=== PATIENT | male | born 2000 | race Hispanic/Latino ===

== ENCOUNTER 2022-06-01 18:26 | Emergency (ER) | payer SELFPAY ==
[2022-06-01] MEDS ORDERED: KETOROLAC 30 MG/ML INJ ONE (19:30)
[2022-06-01 19:43] LABS: Absolute Lymphocytes (CBC) 2.2 K/uL (0.7-4.9); Hematocrit 46.9 % (39.6-49.0); Lymphocytes % 27.4 % (15.3-44.8); MCV 84.7 fL (80-100); MPV 7.5 fL (7.6-11.3); RBC Red Blood Cell Count 5.54 M/uL (4.33-5.43)
[2022-06-01 19:49] LABS: Protime INR 0.97
[2022-06-01 20:02] LABS: ALT/SGPT 19 U/L (12-78); AST/SGOT 12 U/L (15-37); Albumin 4.6 g/dL (3.4-5.0); Alkaline Phosphatase 79 U/L (45-117); BUN Blood Urea Nitrogen 13 mg/dL (7-18); Bicarbonate 26 mmol/L (21-32); Bilirubin Direct 0.3 mg/dL (0-0.2); Bilirubin Total 1.4 mg/dL (0.2-1.0); Glomerular Filtration Rate 112 ml/min (=/>90); Glucose Level 97 mg/dL (74-106); Magnesium 2.1 mg/dL (1.8-2.4); NT PRO-BNP 8 pg/mL (<125); Potassium 3.7 mmol/L (3.5-5.1); Protein, Total 7.7 g/dL (6.4-8.2); Sodium Level 139 mmol/L (136-145)
[2022-06-01 20:05] LABS: Troponin High Sensitivity < 3.0 pg/mL (<58.9)
--- NOTE | 2022-06-01 20:17 | RAD REPORT ---
EXAM DESCRIPTION: RAD - Chest Single View - 06/01/2022 7:57 pm CLINICAL HISTORY: CHEST PAIN COMPARISON: No comparisons FINDINGS: Lines: None. Lungs: Nonspecific prominence of the basilar pulmonary interstitial markings. No consolidation or keyla ma. Pleural: No significant pleural effusions or pneumothorax. Cardiac: The heart size is within normal limits. Bones: No acute fractures. Other: IMPRESSION: No definite acute process. Some nonspecific prominence of the interstitial markings at t he lung bases. No evidence of a consolidative pneumonia or edema.
--- NOTE | 2022-06-01 20:30 | EDPHYS ---
Physician Documentation [facility] Name: Killian Gary Age: 21 yrs Sex: Male : 2000 Arrival Date: 06/01/2022 Time: 18:32 Bed 6 Private MD: ED Physician Keya Childers HPI: 06/01 19:17 This 21 yrs old Male presents to ER via Ambulatory with complaints of Chest jmm Pain, Dizziness. 19:17 The patient or guardian reports chest pain that is located primarily in the anterior [facility] chest wall, left. Associated signs and symptoms: Pertinent positives: lightheadedness, Pertinent negatives: shortness of breath. The chest pain is described as aching, sharp. Duration: The patient or guardian reports a single episode, that is still ongoing. Modifying factors: The symptoms are alleviated by Movement. the symptoms are aggravated by Resting. The patient has experienced a previous episode. Historical: - Allergies: 19:17 No Known Allergies; as6 - Home Meds: 19:17 None [Active]; as6 - PMHx: 19:17 None; as6 - PSHx: 19:17 None; as6 - Immunization history:: Client reports having NOT received the Covid vaccine. - Social history:: Smoking status: Patient denies any tobacco usage or history of. ROS: 19:17 Constitutional: Negative for fever, chills, and weight loss. jmm 19:17 Respiratory: Negative for shortness of breath, cough, wheezing, and pleuritic chest pain, Abdomen/GI: Negative for abdominal pain, nausea, vomiting, diarrhea, and constipation. 19:17 Cardiovascular: Positive for chest pain. 19:17 All other systems are negative. Exam: 19:17 Constitutional: This is a well developed, well nourished patient who is awake, alert, jmm and in no acute distress. Head/Face: atraumatic. Eyes: EOMI, no conjunctival erythema appreciated ENT: Moist Mucus Membranes Neck: Trachea midline, Supple Chest/axilla: Normal chest wall appearance and motion. 19:17 Respiratory: Normal respirations, no respiratory distress appreciated Abdomen/GI: Non distended Back: Normal ROM Skin: General appearance color normal MS/ Extremity: Moves all extremities, no obvious deformities appreciated, no edema noted to the lower extremities Neuro: Awake and alert Psych: Behavior is normal, Mood is normal, Patient is cooperative and pleasant 19:17 Chest/axilla: Palpation: tenderness, that is mild, of the anterior aspect of left upper chest. 19:17 Cardiovascular: Rate: normal, Rhythm: regular. 19:17 Respiratory: the patient does not display signs of respiratory distress, Respirations: normal, Breath sounds: are clear throughout. 06/02 00:10 ECG was reviewed by the Attending Physician. [facility] Vital Signs: 06/01 19:16 BP 147 / 93; Pulse 86; Resp 19 S; Temp 98.4(O); Pulse Ox 100% on R/A; Weight 86.18 kg as6 (R); Height 5 ft. 11 in. (180.34 cm) (R); Pain 5/10; 20:21 BP 142 / 84; Pulse 77; Resp 18 S; Pulse Ox 100% on R/A; as6 20:43 BP 137 / 87; Pulse 79; Resp 18; Pulse Ox 100% ; Pain 0/10; kl 19:16 Body Mass Index 26.50 (86.18 kg, 180.34 cm) as6 MDM: 19:17 Patient medically screened. [facility] 20:30 Data reviewed: vital signs, nurses notes. Counseling: I had a detailed discussion with [facility] the patient and/or guardian regarding: the historical points, exam findings, and any diagnostic results supporting the discharge/admit diagnosis, the need for outpatient follow up, to return to the emergency department if symptoms worsen or persist or if there are any questions or concerns that arise at home. 20:30 ED course: Physical exam consistent with chest wall pain. Pain is reproducible. Labs [facility] are unremarkable. EKG did not reveal signs of pericarditis or ST changes. Patient advised follow-up PCP and otherwise given strict return precautions. Patient understood and agrees to plan of care.. 06/01 19:17 Order name: Basic Metabolic Panel; Complete Time: 20:20 [facility] 06/01 19:17 Order name: CBC with Diff; Complete Time: 19:46 [facility] 06/01 19:17 Order name: LFT's; Complete Time: 20:20 [facility] 06/01 19:17 Order name: Magnesium; Complete Time: 20:20 [facility] 06/01 19:17 Order name: NT PRO-BNP; Complete Time: 20:20 [facility] 06/01 19:17 Order name: PT-INR; Complete Time: 20:20 [facility] 06/01 19:17 Order name: Troponin HS; Complete Time: 20:20 [facility] 06/01 19:17 Order name: XRAY Chest (1 view); Complete Time: 20:20 [facility] 06/01 19:17 Order name: EKG; Complete Time: 19:19 [facility] 06/01 19:17 Order name: Cardiac monitoring; Complete Time: 19:19 [facility] 06/01 19:17 Order name: EKG - Nurse/Tech; Complete Time: 19:46 [facility] 06/01 19:17 Order name: IV Saline Lock; Complete Time: 19:46 [facility] 06/01 19:18 Order name: D-Dimer; Complete Time: 20:20 [facility] 06/01 19:17 Order name: Labs collected and sent; Complete Time: 19:46 [facility] 06/01 19:17 Order name: O2 Per Protocol; Complete Time: 19:19 [facility] 06/01 19:17 Order name: O2 Sat Monitoring; Complete Time: 19:19 [facility] EC/25 00:10 Rate is 79 beats/min. Rhythm is regular. QRS [place] is Normal. SC interval is normal. QRS jmm interval is normal. QT interval is normal. No Q waves. T waves are Normal. No ST changes noted. Reviewed by me. Administered Medications: 06/01 19:31 Drug: Ketorolac 30 mg Route: IVP; Site: right antecubital; aa9 19:47 Follow up: Response: No adverse reaction aa9 20:43 Follow up: Response: No adverse reaction; Marked relief of symptoms kl Disposition Summary: 06/01/22 20:30 Discharge Ordered Location: Home [facility] Condition: Stable [facility] Diagnosis - Chest pain, unspecified [facility] Followup: [facility] - With: Private Physician - When: 2 - 3 days - Reason: Recheck today's complaints, Continuance of care, Re-evaluation by your physician Discharge Instructions: - Discharge Summary Sheet [facility] - Nonspecific Chest Pain, Adult [facility] Forms: - Medication Reconciliation Form [facility] - Thank You Letter [facility] - Antibiotic Education [facility] - Prescription Opioid Use [facility] Prescriptions: - Diclofenac Sodium 75 mg Oral Tablet Sustained Release - take 1 tablet by ORAL route 2 times per day; 30 tablet; Refills: 0, Product [facility] Selection Permitted Signatures: Dispatcher [employer] Gustavo Duarte PA PA jmm Slawson, Ashby, RN RN as6 Rubi Patel RN RN aa9 Shara Lamas RN kl
--- NOTE | 2022-06-01 20:30 | ER ---
Nurse's Notes [facility] Name: Killian Gary Age: 21 yrs Sex: Male : 2000 Arrival Date: 06/01/2022 Time: 18:32 Bed 6 Private MD: Diagnosis: Chest pain, unspecified Presentation: 06/01 19:16 Chief complaint: Patient states: "I've had this chest pain for about a month". as6 Coronavirus screen: At this time, the client does not indicate any symptoms associated with coronavirus-19. Ebola Screen: No symptoms or risks identified at this time. Initial Sepsis Screen: Does the patient meet any 2 criteria? No. Patient's initial sepsis screen is negative. Does the patient have a suspected source of infection? No. Patient's initial sepsis screen is negative. Risk Assessment: Do you want to hurt yourself or someone else? Patient reports no desire to harm self or others. Onset of symptoms was May 02, 2022. 19:16 Method Of Arrival: Ambulatory as6 19:16 Acuity: MOODY 3 as6 Historical: - Allergies: 19:17 No Known Allergies; as6 - Home Meds: 19:17 None [Active]; as6 - PMHx: 19:17 None; as6 - PSHx: 19:17 None; as6 - Immunization history:: Client reports having NOT received the Covid vaccine. - Social history:: Smoking status: Patient denies any tobacco usage or history of. Screenin:18 Abuse screen: Denies threats or abuse. Denies injuries from another. Nutritional as6 screening: No deficits noted. Tuberculosis screening: No symptoms or risk factors identified. Fall Risk None identified. Assessment: 19:18 General: Appears in no apparent distress. Behavior is calm, cooperative. Pain: as6 Complains of pain in chest Quality of pain is described as sharp, stabbing. Neuro: Level of Consciousness is awake, alert. Cardiovascular: Reports chest pain. Respiratory: Respiratory effort is even, unlabored. Vital Signs: 19:16 BP 147 / 93; Pulse 86; Resp 19 S; Temp 98.4(O); Pulse Ox 100% on R/A; Weight 86.18 kg as6 (R); Height 5 ft. 11 in. (180.34 cm) (R); Pain 5/10; 20:21 BP 142 / 84; Pulse 77; Resp 18 S; Pulse Ox 100% on R/A; as6 20:43 BP 137 / 87; Pulse 79; Resp 18; Pulse Ox 100% ; Pain 0/10; kl 19:16 Body Mass Index 26.50 (86.18 kg, 180.34 cm) as6 ED Course: 18:32 Patient arrived in ED. mr 18:55 Gustavo Cisneros PA is PHCP. jmm 18:55 Keya Childers is Attending Physician. m 19:08 Carlos Mcghee, GLYNN is Primary Nurse. as6 19:17 Triage completed. as6 19:18 Arm band placed on. as6 19:18 Bed in low position. Call light in reach. Side rails up X2. Client placed on continuous as6 cardiac and pulse oximetry monitoring. NIBP monitoring applied. 19:31 Inserted saline lock: 20 gauge in right antecubital area, using aseptic technique. aa9 Blood collected. 19:46 D-Dimer Sent. aa9 19:46 Basic Metabolic Panel Sent. aa9 19:46 LFT's Sent. aa9 19:46 Magnesium Sent. aa9 19:47 NT PRO-BNP Sent. aa9 19:47 PT-INR Sent. aa9 19:47 Troponin HS Sent. aa9 19:58 XRAY Chest (1 view) In Process Unspecified. EDMS 20:42 No provider procedures requiring assistance completed. IV discontinued, intact, kl bleeding controlled, No redness/swelling at site. Pressure dressing applied. Administered Medications: 19:31 Drug: Ketorolac 30 mg Route: IVP; Site: right antecubital; aa9 19:47 Follow up: Response: No adverse reaction aa9 20:43 Follow up: Response: No adverse reaction; Marked relief of symptoms kl Medication: 20:44 VIS not applicable for this client. Outcome: 20:30 Discharge ordered by . baljinder 20:43 Discharged to home ambulatory. 20:43 Condition: improved 20:43 Discharge instructions given to patient, Instructed on discharge instructions, follow up and referral plans. medication usage, Demonstrated understanding of instructions, follow-up care, medications, Prescriptions given X 1. 20:44 Patient left the ED. kl Signatures: Dispatcher [employer] EDMS Shara Lamas, RN RN Gustavo Lewis PA PA jmm Rivera, Mary mr Carlos Mcghee, RN RN as6 Rubi Patel, RN RN aa9
[2022-06-01 21:17] VITALS: TEMP 98.4; O2SAT 100
[2022-06-01 21:21] VITALS: BP 137/87
--- NOTE | 2022-06-02 09:26 | EKG ---
Test Date: 2022-06-01 Test Time: 19:31:28 Top Cager: SIVA MEASUREMENT RESULTS: Intervals: Rate: 79 MI: 130 QRSD: 90 QT: 358 QTc: 410 [place]: P: 56 MI: 130 QRS: 70 T: 2 INTERPRETIVE STATEMENTS: Normal sinus rhythm with sinus arrhythmia Normal ECG No previous ECG available for comparison Electronically Signed On 06-02-22 09:24:43 CDT by Jeffrey Chicas
== END 2022-06-01 20:44 | disposition home or self-care (01) ==
LOC: ER 18:26
DX: R07.89 Other chest pain (principal); R42 Dizziness and giddiness
CPT/HCPCS: 36415; 71045; 80048; 80076; 83735; 83880; 84484; 85025; 85379; 85610; 93005; 96374; 99284